=== PATIENT | male | born 1930 | race Caucasian/White ===

== ENCOUNTER 2016-05-31 13:50 | Inpatient (IN) | payer MEDICARE, MEDICAID ==
--- NOTE | 2016-05-31 14:16 | ED Physician Chart ---
Chief Complaint/HPI - Patient Information Date Seen:: 05/31/16 Time Seen:: 14:00 Chief Complaint:: AGGITATION AND CONFUSED History of Present Illness:: According to EMS personnel who transported the patient was sent here from a nursing facility because of increased agitation and confusion. The patient has severe dementia and is unable to provide any information other than his name. He is disoriented to place and time. He does not know the name of the president. He denies any recent fever, chills, headache, chest pain, abdominal pain, shortness of breath or nausea and vomiting. Allergies:: Allergies Allergy/AdvReac Type Severity Reaction Status Date / Time haloperidol [From Haldol] Allergy Verified 05/31/16 14:07 lisinopril Allergy Verified 05/31/16 14:07 Penicillins [PCN] Allergy Verified 05/31/16 14:07 Review of Systems - Review of Systems General/Constitutional: No fever, Other (the patient is too demented to convey a reliable review of systems.) Past Medical History - Past Medical History Past Medical History: HTN, DM (I reviewed the paperwork which accompanied the patient states that he has a history of coronary artery disease, diabetes type 2 , bipolar disorder, benign prostatic hypertrophy, and that he is status post colostomy surgery. It is unknown if the patient is a smoker, consumes alcohol and it is unlikely that he uses illicit drugs.) Family Medical History - Family Member Mother History Unknown: Yes Ethnicity: Unknown Living Status: Unknown Physical Exam - Physical Examination General/Constitutional: Awake, Well-developed, well-nourished, Alert, No distress, Non-toxic appearing Other Gen/Cons comments:: Confused and demented but also cooperative and able to follow simple commands. Head: Atraumatic Other Head comments:: No visible or palpable evidence of recent head injury. Eyes: Lids, conjuctiva normal, EOMI Other Eyes comments:: Pinpoint pupils are already too small to constrict with light. No nystagmus. Sclera are not jaundiced. Skin: Nl inspection, No skin lesions, No ecchymosis, Well hydrated, No lymphadenopathy Other Skin comments:: The patient had marked erythema and inflammation of the skin which surrounded the colostomy stoma in the right lower quadrant. I felt this was consistent with acute cellulitis but after conversation with the patient son it seems that the patient has had some inflammation in the area for close to 30 years. ENMT: External ears, nose nl, Lips, teeth, gums nl, Oropharynx nl, Tonsils nl Other ENMT comments:: Teeth are markedly well-maintained. Neck: Nontender, Full ROM w/o pain, No JVD, No nuchal rigidity, No mass, No stridor Respiratory: Nl effort/Exclusion Other Respiratory comments:: Patient has rales and rhonchi in the right lower lung zone. No intercostal retractions and does not appear to be in any respiratory distress. O2 saturations are in the high 90s. Cardio Vascular: RRR, No murmur, gallop, rubs, NL S1 S2 Other Cardio Vascular comments:: Adequate pulses in all 4 extremities. Other GI comments:: The patient has a colostomy localized to the right lower quadrant. The skin surrounding the colostomy stoma is markedly inflamed. On palpation the abdomen is soft and nontender. There is no associated guarding or rebound tenderness. No palpable liver or spleen. : No CVA tenderness, No discharge Extremities: No tenderness or effusion, Full ROM, normal strength in all extremities, No edema, Normal digits & nails Other Neuro/Psych comments:: The patient is alert and oriented to his name only. Follows simple commands. Strength is consistent with the patient's age and build in all 4 extremities. Patient was not ambulated. . Labs/Radiology/EKG Results - Lab Results Results: Laboratory Results - last 24 hr 05/31/16 05/31/16 05/31/16 14:26 14:26 14:26 WBC 15.2 H D RBC 3.87 Hgb 11.3 L Hct 32.7 L D MCV 84.5 MCH 29.2 MCHC Differential 34.6 RDW 13.7 Plt Count 186 MPV 7.9 Neutrophils % 47.3 Lymphocytes % 39.5 Monocytes % 11.2 H Eosinophils % 1.4 Basophils % 0.6 Sodium 136 Potassium 4.8 Chloride 106 Carbon Dioxide 24.8 Anion Gap 10.0 BUN 37 H Creatinine 1.2 Est GFR ( Amer) TNP Est GFR (Non-Af Amer) TNP BUN/Creatinine Ratio 30.8 Glucose 118 H Calcium 9.2 Total Bilirubin 0.3 AST 23 ALT 11 Alkaline Phosphatase 91 Total Protein 7.2 Albumin 3.4 L Globulin 3.8 Albumin/Globulin Ratio 0.9 L TSH 2.32 Laboratory interpretation: Patient has a leukocytosis with a white count of 15.2. His mild anemia with a hemoglobin of 11.3. His electrolytes are within normal parameters. He has an elevated BUN with a normal creatinine. Glucose was mildly elevated at 118. Liver function studies show no evidence of significant liver damage. Results of the urinalysis are still pending at this time. Single view AP chest x-ray: Myocardial megaly with no associated CHF. There is calcification of the aortic arch with no mediastinal widening. No pneumothorax. No areas of pulmonary consolidation. Impression: No acute cardiopulmonary findings. Assessment - Assessment General Assessment: CASE SUMMARY: this 85-year-old male was transferred to the emergency department from his nursing facility for psychiatric evaluation of increased agitation and confusion. The patient was unable to provide any information other than his name. 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 Laboratory studies showed a significant elevation of the white count in the 15 ,000 range. No focus of infection other than the skin around the colostomy stoma was identified. He was prophylactically started on ceftriaxone for treatment of possible UTI. Patient was admitted to the hospital for further psychiatric and medical evaluation. MDM: DDX of INCREASED AGITATION AND CONFUSION: NOT pneumonia based on exam and negative CXR. NOT head injury based on examinaion. NOT Electrolyte imbalance based on laboratory studies. NOT hypoxemia based on pulse ox monitoring. NOT ED Septic Shock - . Is Septic Shock (SBP<90, OR Lactate>4 mmol\L) present?: No Reassessment (Disposition) - Reassessment Reassessment Condition:: Improved - Diagnosis Diagnosis:: INCREASED AGITATION AND CONFUSION. SEVERE DEMENTIA. CELLULITIS OF THE SKIN IN THE AREA OF THE COLOSTOMY STOMA. - Patient Disposition Discharge/Transfer:: Acute Care w/in this hosp ED Discharge Plan - Patient Disposition Admit/Discharge/Transfer: Other Care w/in this hosp Condition at Disposition: Guarded
[2016-05-31 14:40] LABS: % BASOPHILS 0.6 % (0.0-2.0); % EOSINOPHILS 1.4 % (0.0-5.0); % LYMPHOCYTES 39.5 % (20.0-50.0); % MONOCYTES 11.2 % (2.0-10.0); % NEUTROPHILS 47.3 % (40.0-80.0); HEMOGLOBIN 11.3 gm/dL (12.6-17.4); MEAN CELL VOLUME 84.5 fl (80-99); MEAN CORPUSCULAR HEMOGLOBIN 29.2 pg (27.0-31.0); MEAN CORPUSCULAR HGB CONC 34.6 pg (28.0-36.0); MEAN PLATELET VOLUME 7.9 fl; NEUTROPHILE ABSOLUTE 7.2 Th/cmm (1.8-8.0); PLATELET COUNT 186 Th/cmm (150-400); RED BLOOD COUNT 3.87 Mil/cmm (3.80-5.80); RED CELL DISTRIBUTION WIDTH 13.7 % (11.5-20.0)
[2016-05-31 14:46] LABS: ALB/GLOB RATIO 0.9 (1.0-1.8); ALKALINE PHOSPHATASE 91 U/L (34-104); BILIRUBIN,TOTAL 0.3 mg/dL (0.3-1.0); BUN - UREA NITROGEN 37 mg/dL (7-25); BUN/CREATININE RATIO 30.8; CALCIUM SERUM 9.2 mg/dL (8.6-10.3); CARBON DIOXIDE 24.8 mEq/L (21.0-31.0); CHLORIDE 106 mEq/L (98-107); CREATININE - SERUM 1.2 mg/dL (0.7-1.3); GLUCOSE 118 mg/dL (70-105); POTASSIUM SERUM 4.8 mEq/L (3.5-5.1); SGOT 23 U/L (13-39); SGPT/ALT 11 U/L (7-52); SODIUM SERUM 136 mEq/L (136-145); WHITE BLOOD COUNT 15.2 Th/cmm (4.8-10.8)
[2016-05-31 14:48] LABS: HEMATOCRIT 32.7 % (39.0-49.0)
[2016-05-31] MEDS ORDERED: cefTRIAXone 2 GM in Sodium Chloride 0.9% 100 ML IV ONE (15:47)
[2016-05-31 15:59] LABS: URINE COLOR YELLOW
[2016-05-31 16:00] LABS: URINE BILIRUBIN NEGATIVE (NEGATIVE); URINE BLOOD SMALL (NEGATIVE); URINE GLUCOSE (UA) NEGATIVE (NEGATIVE); URINE KETONE NEGATIVE (NEGATIVE); URINE PROTEIN 30 mg/dL (NEGATIVE); URINE UROBILINOGEN 0.2 E.U./dL (0.2 - 1.0)
[2016-05-31 16:01] LABS: URINE BACTERIA NONE SEEN /hpf (NONE SEEN); URINE EPITHELIAL CELLS NONE SEEN /lpf (FEW); URINE RBC 0-2 /hpf (0-5); URINE WBC NONE SEEN /hpf (0-5)
--- NOTE | 2016-05-31 16:03 | Diagnostic Imaging Report ---
Portable chest x-ray HISTORY: Shortness of breath There is a poor inspiration. The heart appears enlarged. Atherosclerotic calcification seen in the aorta. There is a 5 mm calcified nodule in the periphery of the left lower lung consistent with old granulomatous disease. Diffuse degenerative changes are seen to the spine. IMPRESSION: 1. No acute abnormalities 2. Cardiomegaly with atherosclerotic vascular changes 3. Calcified nodule within the periphery of the left lower lung consistent with old granulomatous disease
[2016-05-31 20:18] VITALS: BP 113/64
[2016-05-31] MEDS ORDERED: Magnesium Hydroxide (MOM) 30 mL UDC PO PRN (20:19)
[2016-05-31] MEDS ORDERED: Maalox 30 mL Cup PO PRN (20:19)
[2016-06-01] MEDS ORDERED: Pneumococcal Vaccine 0.5 mL Vial IM ONE (00:31)
[2016-06-01] MEDS ORDERED: Multivitamin Tab PO SCH (09:00)
[2016-06-01] MEDS: Calcium Carb/Vit D 500 mg/200 U Tab PO SCH (09:05)
[2016-06-01] MEDS: Multivitamin Tab PO SCH (09:05)
[2016-06-01] MEDS: Ferrous Sulfate 325 MG TAB PO SCH ×2 (09:06→17:46)
[2016-06-01] MEDS: Dextromethorphan/Quinidine 20mg/10mg Cap PO SCH ×2 (09:06→17:45)
[2016-06-01] MEDS ORDERED: PRAVASTATIN SODIUM 20 MG PO SCH (21:00)
--- NOTE | 2016-06-02 03:18 | Psychosocial Evaluation ---
IDENTIFYING DATA: The patient is an 85-year-old male, resident of [facility] in [place]. JUSTIFICATION FOR HOSPITALIZATION: The patient is admitted on the voluntary basis in view of his aggressive behavior. CHIEF COMPLAINT: "I do not know." HISTORY OF PRESENT ILLNESS: This is the second psychiatric hospitalization for this patient who is a resident of the [facility]. The patient is reported to have been screaming and yelling and has been getting very aggressive, the patient is getting confused and agitated. The patient could not be continued to lower level of care and hence, the patient has been referred over here for stabilization. The patient has also reported to have been arguing with the staff members and having anger outbursts. PAST PSYCHIATRIC HISTORY: Significant for depression and psychosis and dementia. The patient is reported to have been hospitalized in September of last year. The patient is being followed up by ____ on an outpatient basis. MEDICAL HISTORY: The patient has a history of hypertension, coronary artery disease, diabetes mellitus type 2. SOCIAL HISTORY: The patient is resident of the [facility]. MENTAL STATUS EXAMINATION: The patient is an 85-year-old, looking his stated age, superficially cooperative. Eye contact is poor. Mood is noted to be irritable. Affect is constricted. Insight and judgment at this time are noted to be impaired. Impulse control seemed to be poor. Coping skills are also noted to be poor. The patient is screaming, the patient is reporting that he is not doing anything and it is the staff that are being____ fight him. The patient is reported that there is no reason that he needs to be in here and he wants to get back to the facility. The patient has paranoia, but denies any command hallucinations. The patient has paranoia and has been focussing on the staff and is stating that they are sending him for no reason. The patient is getting easily upset during the interview. The patient has short-term as well as ____long-term memory deficits and the patient is getting upset when I am asking the details about the cognitive functioning. Prior to the hospitalization, the patient has been on blood pressure medications such as the atenolol and the patient is also getting the valproic acid 375 mg every 12 hours and the patient is also on the quetiapine q. 12 hours. So far, the patient has been compliant with the medications. DIAGNOSTIC IMPRESSION: Bipolar disorder, mixed. PLAN: To continue the patient with this current medications, we encouraged the patient to verbalize the concerns rather than to act out. JOB# [id number]
--- NOTE | 2016-06-02 06:37 | Consultation ---
REQUESTING PHYSICIAN: Dr. Lazo. REASON FOR CONSULTATION: Multiple medical problems including hypertension with atherosclerotic heart disease, chronic stable angina, noninsulin dependent type 2 diabetes mellitus, benign prostatic hyperplasia, right lower quadrant colostomy, iron deficiency anemia, osteoporosis, hyperlipidemia, Alzheimer dementia and recent agitation and confusion. HISTORY OF PRESENT ILLNESS: An 85-year-old gentlemen with advanced directive of no CPR, resident of a longterm facility, transferred to the Geropsych Unit via ambulance after noticing severe agitation and confusion. The patient currently is sleeping and only able to say " Aah Aah " like that and then follow sleep back. All history obtained through the review of the medical record in Emergency Room physician note. PAST MEDICAL HISTORY: As mentioned above. CURRENT MEDICATION: Include acetaminophen 650 q. 4 hours p.r.n. pain and Maalox 30 mL q.4 h. p.r.n. dyspepsia, Tenormin 25 mg once a day, calcium with vitamin D 2 tablets once a day, vitamin B12 500 mcg once a day. The patient is also on Depakote 375 mg twice a day. The patient is also on a Nuedexta 1 capsule twice a day, Colace 100 twice a day, Aricept 10 mg once a day, ferrous sulfate 325 once a day, glipizide 5 mg once a day and Seroquel 25 mg twice a day, Zocor 10 mg at bedtime and Flomax 0.4 mg once a day. SOCIAL HISTORY: Is not able to obtain. ALLERGIES: LISINOPRIL, PENICILLIN AND HALDOL. REVIEW OF SYSTEMS: Unable to do as the patient's drowsy and unable to provide any insight at present time due to lack of participation. PHYSICAL EXAMINATION: VITAL SIGNS: Temperature 97.1, pulse 97, respiratory rate 19, blood pressure 147/51, saturation on room air 97%, Accu-Chek 118-120, height 1.73 meter, weight 74.8 kg, BMI 25.1. HEENT: No icterus, no pallor. Mucosa is moist. No oral candidiasis. NECK: Supple. No JVD, bruit, or lymphadenopathy. LUNGS: Clear. CARDIOVASCULAR: S1, S2 normal limits. ABDOMEN: Soft, right lower quadrant colostomy is present. Bowel sound is active. No distention. EXTREMITIES: No leg edema noted. Skin temperature normal. Dorsalis pedis palpable bilaterally equally, onychomycosis noted of the first toe bilaterally. CENTRAL NERVOUS SYSTEM: The patient is very drowsy, but able to move all extremities without difficulties. LABORATORY TESTS: WBC 15,000, hemoglobin 11.3, MCV 84, platelet of 186,000, neutrophil 47. Liver panel is unremarkable. Albumin 3.4. TSH normal at 2.3. Urinalysis reveal protein 1+. On May 31, chest x-ray revealed cardiomegaly, calcification of the aorta and granuloma present. Sodium 136, potassium 4.8, chloride 106, bicarbonate 25, BUN 37, creatinine 1.2, glucose of 118, calcium 9.2. ASSESSMENT AND PLAN: 1. Alzheimer's dementia, currently on Aricept 10 mg once a day, we will continue with that. 2. Confusion and agitation, further plan per Dr. Lazo. 3. Hypertension with atherosclerotic heart disease, currently on atenolol 25 mg, will continue same. 4. Chronic stable angina, continue with atenolol medical management. 5. Noninsulin dependent diabetes mellitus type 2, currently stable. We will check a hemoglobin A1c. Continue Accu-Chek. 6. Benign prostatic hyperplasia, currently on Flomax 0.4 mg once a day. We will continue with that. 7. Right lower quadrant colostomy, we will continue local care. 8. Iron deficiency anemia. Continue iron 325 once a day. 9. Osteoporosis. Vitamin D with calcium supplement. 10. Hyperlipidemia, continue Zocor 10 once a day. 11. Leukocytosis. Check CBC again, most likely reactive. 12. No CPR status per advanced directive from 10/05/2015 from the longterm facility [facility]. Thank you, Dr. Lazo, for consultation. JOB# [id number] FRED
[2016-06-02 07:51] LABS: HEMATOCRIT 33.9 % (39.0-49.0); HEMOGLOBIN 11.5 gm/dL (12.6-17.4); MEAN CELL VOLUME 84.3 fl (80-99); MEAN CORPUSCULAR HEMOGLOBIN 28.6 pg (27.0-31.0); MEAN CORPUSCULAR HGB CONC 33.9 pg (28.0-36.0); MEAN PLATELET VOLUME 8.3 fl; PLATELET COUNT 164 Th/cmm (150-400); RED BLOOD COUNT 4.02 Mil/cmm (3.80-5.80); RED CELL DISTRIBUTION WIDTH 13.7 % (11.5-20.0); WHITE BLOOD COUNT 13.4 Th/cmm (4.8-10.8)
[2016-06-02 08:06] LABS: URIC ACID 8.7 mg/dL (4.4-7.6)
[2016-06-02] MEDS: Dextromethorphan/Quinidine 20mg/10mg Cap PO SCH ×2 (09:34→17:08)
[2016-06-02] MEDS: Ferrous Sulfate 325 MG TAB PO SCH ×2 (09:34→17:08)
[2016-06-02] MEDS: Multivitamin Tab PO SCH (09:35)
[2016-06-02] MEDS: Calcium Carb/Vit D 500 mg/200 U Tab PO SCH (09:35)
[2016-06-02 09:51] LABS: NEUTROPHILS 46 % (40-80); PLATELET ESTIMATE ADEQUATE (NORMAL); PLATELET MORPHOLOGY NORMAL (NORMAL); TOTAL CELLS COUNTED 100
--- NOTE | 2016-06-03 03:17 | Progress Notes ---
PSYCHIATRIC PROGRESS NOTE TIME PATIENT SEEN: 9:45 a.m. SUBJECTIVE: Staff was spoken to. The patient is interviewed. Mood is noted to be irritable. Affect is constricted. Coping skills are noted to be poor. Sleep and appetite are also noted to be poor. The patient has been having difficult time to cope with the stress. No side effects to the medications are noted at this time. The patient is still isolative and withdrawn. The patient at times has been trying to reach for his G-tube to pull it out. ASSESSMENT: The patient is still impulsive and agitated. PLAN: To continue the patient with supportive therapy. I encouraged the patient to verbalize the concerns rather than to act out. JOB# [id number]
[2016-06-03] MEDS: Calcium Carb/Vit D 500 mg/200 U Tab PO SCH (08:41)
[2016-06-03] MEDS: Multivitamin Tab PO SCH (08:41)
[2016-06-03] MEDS: Dextromethorphan/Quinidine 20mg/10mg Cap PO SCH ×2 (08:41→16:58)
[2016-06-03] MEDS: Ferrous Sulfate 325 MG TAB PO SCH ×2 (08:41→16:58)
--- NOTE | 2016-06-04 01:54 | Progress Notes ---
PSYCHIATRIC PROGRESS NOTE TIME PATIENT SEEN: 8:15 a.m. SUBJECTIVE: Staff was spoken to. The patient is interviewed. Mood is noted to be anxious. The patient is isolative and withdrawn. Coping skills are noted to be very poor at this time. The patient has been isolative and withdrawn. The patient is not presenting with any major behavioral problems. ASSESSMENT AND PLAN: The patient is being given the Depakote 375 mg twice a day and since the patient is too sleepy and lethargic, it is decided to decrease the dose to 250 mg twice a day and continue the patient on the Seroquel and follow him up with the supportive therapy. Please note that the patient is not ready to be discharged to a lower level of care yet. [facility]# [id number]
[2016-06-04] MEDS: Dextromethorphan/Quinidine 20mg/10mg Cap PO SCH ×2 (09:40→17:45)
[2016-06-04] MEDS: Calcium Carb/Vit D 500 mg/200 U Tab PO SCH (09:40)
[2016-06-04] MEDS: Multivitamin Tab PO SCH (09:40)
[2016-06-04] MEDS: Ferrous Sulfate 325 MG TAB PO SCH ×2 (09:43→17:45)
--- NOTE | 2016-06-05 01:51 | Progress Notes ---
PSYCHIATRIC PROGRESS NOTE TIME PATIENT SEEN: 7:30 a.m. SUBJECTIVE: Staff was spoken to. The patient is interviewed. Mood is noted to be anxious. Affect is appropriate. Not suicidal or homicidal. The patient, however, has been very isolative, withdrawn. Paranoid delusions are noted, but patient denies any command hallucinations at this time. Sleep and appetite at this time are noted to be fair. No side effects to the medications are noted. The patient continues to be isolative and withdrawn. ASSESSMENT: The patient is still psychotic. PLAN: To continue the patient with supportive therapy. I encouraged the patient to verbalize the concerns rather than to act out. JOB# [id number]
[2016-06-05] MEDS: Calcium Carb/Vit D 500 mg/200 U Tab PO SCH (09:13)
[2016-06-05] MEDS: Dextromethorphan/Quinidine 20mg/10mg Cap PO SCH ×2 (09:14→17:05)
[2016-06-05] MEDS: Ferrous Sulfate 325 MG TAB PO SCH ×2 (09:14→17:05)
[2016-06-05] MEDS: Multivitamin Tab PO SCH (09:15)
[2016-06-06] MEDS: Dextromethorphan/Quinidine 20mg/10mg Cap PO SCH ×2 (10:33→16:39)
[2016-06-06] MEDS: Calcium Carb/Vit D 500 mg/200 U Tab PO SCH (10:33)
[2016-06-06] MEDS: Multivitamin Tab PO SCH (10:34)
[2016-06-06] MEDS: Ferrous Sulfate 325 MG TAB PO SCH ×2 (10:35→16:39)
--- NOTE | 2016-06-07 00:48 | Progress Notes ---
PSYCHIATRIC PROGRESS NOTE TIME PATIENT SEEN: 9:45 a.m. SUBJECTIVE: Staff was spoken to. The patient is interviewed. Mood is noted to be irritable. Affect is constricted. The patient is confused. The patient is trying to get out of the bed and wants to pull the bedrails down. The patient has no insight into his illness. The patient is being provided with supportive therapy. The patient is being closely monitored at this time. ASSESSMENT: The patient is still grossly confused and paranoid. PLAN: To continue the patient with the current medications and follow up. JOB# [id number]
[2016-06-07] MEDS: Dextromethorphan/Quinidine 20mg/10mg Cap PO SCH (08:41)
[2016-06-07] MEDS: Calcium Carb/Vit D 500 mg/200 U Tab PO SCH (08:41)
[2016-06-07] MEDS: Multivitamin Tab PO SCH (08:41)
[2016-06-07] MEDS: Ferrous Sulfate 325 MG TAB PO SCH (08:42)
--- NOTE | 2016-06-08 15:32 | Progress Notes ---
PSYCHIATRIC PROGRESS NOTE TIME PATIENT SEEN: 8:00 a.m. SUBJECTIVE: Staff was spoken to. The patient is interviewed. Mood is noted to be anxious. Affect is appropriate. Not suicidal or homicidal. Insight and judgment noted to be improving. Impulse control is also noted to be fair. No side effects to the medications are noted. The patient is less irritable and angry today compared to other days. The patient's family is wanting the patient to be returned back to the facility for further care. The patient has been able to verbalize the concerns rather than to act out at this time. ASSESSMENT: The patient is stabilizing. PLAN: To continue the patient with the supportive therapy. I encouraged the patient to verbalize the concerns rather than to act out. JOB# [id number]
--- NOTE | 2016-07-01 18:59 | Discharge Summary ---
IDENTIFYING DATA: The patient is an 85-year-old male, resident of [facility] in [place]. JUSTIFICATION OF HOSPITALIZATION: The patient is admitted on a voluntary basis in view of his aggressive behaviors. CHIEF COMPLAINT: "I do not know." DIAGNOSES AT THE TIME OF ADMISSION: AXIS I: Bipolar disorder, mixed. AXIS II: None. MEDICAL DIAGNOSES: As per Dr. Greg Florez. HISTORY OF PRESENT ILLNESS: Please refer to the 06/01/2016 dictation done by me. Physical examination was done by Dr. Greg Florez and is noted to be significant for hypertension, atherosclerotic heart disease, chronic stable angina, BPH, osteoporosis, hyperlipidemia. HOSPITAL COURSE AND RESPONSE TO TREATMENT: The patient has been observed on the Inpatient Unit, provided with supportive psychotherapy. The patient has been closely monitored on the Inpatient Unit. The patient has been placed on atenolol 25 mg for his blood pressure. The patient also has been given the valproic acid 250 mg every 12 hours. The patient has been placed on Aricept 10 mg at bedtime. The patient has been encouraged to participate in the groups and verbalize the concerns. The patient has been closely monitored and was noted to be doing fairly well. The patient has been continued on the Seroquel at bedtime to help him with his paranoia and aggressive behavior. The patient has finally been discharged on 06/07/2016 with recommendation that he is going to be seeking treatment on an outpatient basis by Dr. Rodrigez. MENTAL STATUS EXAMINATION AT THE TIME OF DISCHARGE: The patient's mood is noted to be less irritable. Affect is appropriate, not suicidal or homicidal. Insight and judgment are noted to be improving. Impulse control seems to be fair. No side effects to the medications are noted. The patient has been able to verbalize the concerns rather than to act out at the time of the discharge. DIAGNOSIS AT THE TIME OF DISCHARGE: AXIS I: Bipolar disorder, mixed. AXIS II: None. MEDICAL DIAGNOSES: 1. Atherosclerotic heart disease. 2. Hypertension. 3. Osteoporosis. 4. Benign prostatic hypertrophy. 5. Diabetes mellitus. JOB# [id number]
== END 2016-06-07 14:45 | DRG 885 ==
LOC: ER 13:50 → GERO 18:15
PROVIDERS: ADMIT Psychiatry & Neurology Psychiatry; ATTEND Psychiatry & Neurology Psychiatry
DX: F31.60 Bipolar disorder, current episode mixed, unspecified (principal); L03.311 Cellulitis of abdominal wall; E11.9 Type 2 diabetes mellitus without complications; G30.9 Alzheimer's disease, unspecified; F02.80 Dementia in other diseases classified elsewhere, unspecified severity, without behavioral disturbance, psychotic disturbance, mood disturbance, and anxiety; I10 Essential (primary) hypertension; D50.9 Iron deficiency anemia, unspecified; E78.5 Hyperlipidemia, unspecified; N40.0 Benign prostatic hyperplasia without lower urinary tract symptoms; M81.0 Age-related osteoporosis without current pathological fracture; I25.119 Atherosclerotic heart disease of native coronary artery with unspecified angina pectoris; D72.829 Elevated white blood cell count, unspecified; F22 Delusional disorders; Z93.3 Colostomy status; Z88.8 Allergy status to other drugs, medicaments and biological substances; Z88.0 Allergy status to penicillin
CPT/HCPCS: 36415-UA; 71010-TC; 80053-TC; 80061-TC; 81001-TC; 82140-TC; 82150-TC; 82948-90; 83036-90; 83690-TC; 84443-TC; 84520-TC; 84550-TC; 85007-TC; 85025-TC; 85027-TC; 90732; 96375; J0696; J2060; Z7610